=== PATIENT | female | born 1960 | race Caucasian/White ===

== ENCOUNTER → 2016-12-14 | Outpatient (CLI) | payer MEDICARE, OTHER ==
[~2016-12-14] MED LIST: ANTIVERT 25MG25 MG PO; ASPIRIN 32325 MG/TAB PO; ASPIRIN E.C. 8181 MG PO; CYMBALTA 60MG60 MG PO; DOXYCYCLINE 10100 MG PO; DULCOLAX S10 MG/SUPP RC; EVOXAC30 MG PO; FISH OIL 1000MG1 CAP PO; FLONASE NASAL S16 GM NS; FLOVENT 220MCG7.9 GM IH; HAIRSKINNAILS PO; HCTZ 25MG TAB25 MG PO; K-TAB20 PO; LEVAQUIN 750MG750 M1 PO; LEVOXYL0.137 MG PO; NEURONTIN800 MG/TAB PO; NITROSTAT0.4 MG/TAB SL; PAMELOR 25MG25 MG PO; PLAVIX 75MG TAB75 MG PO; PRAVACHOL 40MG40 MG PO; PRIL40 PO; PROAIR HFA0.09 MG/AC IH; REFRESH CELLUVI1 SOL OP; ROBAXIN 75750 MG/TAB PO; TENORMIN 5050 MG/TAB PO; ULTRAM 50MG TAB50 MG PO; VALIUM 5MG T5 MG/TAB PO; VASCEPA1 GM PO; VITAMIN B-1000 MCG/T PO; XANAX 0.5MG0.5 MG PO; ZOFRAN 4MG T4 MG/TAB PO; ZYRTEC 10MG10 MG PO
== END ==
LOC: COL.RAD 13:05
DX: M89.9 Disorder of bone, unspecified (principal)
CPT/HCPCS: A9585

== ENCOUNTER 2016-12-26 11:52 | Day surgery (SDC) | payer MEDICARE, OTHER ==
[2016-12-26] VITALS (9 sets, daily range): BP systolic 94–105; BP diastolic 49–71; PULSE 66–75
[~2016-12-26] VITALS: Ht 167.6 cm; Wt 79.3 kg
[2016-12-26 12:39] LABS: HEMOGLOBIN 10.5 g/dl (12.5-16.0); MEAN CELL VOLUME 79 fl (80.0-100.0); MEAN CORPUSCULAR HEMOGLOBIN 25 pg (27.0-31.0); MEAN CORPUSCULAR HGB CONC 32 g/dl (33.0-37.0); MEAN PLATELET VOLUME 8.8 fl (7.4-10.4); PLATELET COUNT 426 K/mm3 (130-400); RED BLOOD COUNT 4.17 M/mm3 (4.10-5.30)
[2016-12-26 12:48] LABS: INR 1.2 (0.8-3.0); PROTHROMBIN TIME 13.3 SECONDS (9.7-12.8)
[2016-12-26 12:55] LABS: CALCIUM 9.1 mg/dL (8.4-10.2); CREATININE, serum 0.71 mg/dL (0.52-1.25); POTASSIUM 3.9 mmol/L (3.4-5.0)
[2016-12-26] MEDS ORDERED: NITROSTAT0.4 MG/TAB SL (13:35)
[2016-12-26] MEDS ORDERED: LEVOXYL0.137 MG PO (13:36)
[2016-12-26] MEDS ORDERED: PRAVACHOL 40MG40 MG PO (13:37)
[2016-12-26] MEDS ORDERED: FLOVENT 220MCG7.9 GM IH (13:38)
[2016-12-26] MEDS ORDERED: ROBAXIN 75750 MG/TAB PO (13:39)
[2016-12-26] MEDS ORDERED: NEURONTIN800 MG/TAB PO (13:40)
[2016-12-26] MEDS ORDERED: PRIL40 PO (13:43)
[2016-12-26] MEDS ORDERED: PLAVIX 75MG TAB75 MG PO (13:44)
[2016-12-26] MEDS ORDERED: PAMELOR 25MG25 MG PO (13:44)
[2016-12-26] MEDS ORDERED: PROAIR HFA0.09 MG/AC IH (13:44)
[2016-12-26] MEDS ORDERED: VASCEPA1 GM PO (13:45)
[2016-12-26] MEDS ORDERED: EVOXAC30 MG PO (13:46)
[2016-12-26] MEDS ORDERED: CYMBALTA 60MG60 MG PO (13:47)
[2016-12-26] MEDS ORDERED: HCTZ 25MG TAB25 MG PO (13:48)
[2016-12-26] MEDS ORDERED: K-TAB20 PO (13:49)
[2016-12-26] MEDS ORDERED: REFRESH CELLUVI1 SOL OP (13:49)
[2016-12-26] MEDS ORDERED: TENORMIN 5050 MG/TAB PO (13:50)
[2016-12-26] MEDS ORDERED: ASPIRIN 32325 MG/TAB PO (13:50)
[2016-12-26] MEDS ORDERED: HAIRSKINNAILS PO (13:51)
[2016-12-26] MEDS ORDERED: VITAMIN B-1000 MCG/T PO (13:51)
[2016-12-26] MEDS ORDERED: ASPIRIN E.C. 8181 MG PO (14:55)
== END 2016-12-26 16:55 | disposition home or self-care (01) ==
LOC: EUO 11:52 → COL.CAR 12:45 → EUO 16:55
PROVIDERS: Internal Medicine Interventional Cardiology
DX: R07.9 Chest pain, unspecified (principal); R94.39 Abnormal result of other cardiovascular function study; I20.9 Angina pectoris, unspecified; I70.213 Atherosclerosis of native arteries of extremities with intermittent claudication, bilateral legs; F17.210 Nicotine dependence, cigarettes, uncomplicated; R06.02 Shortness of breath; Z80.9 Family history of malignant neoplasm, unspecified; Z79.01 Long term (current) use of anticoagulants; I83.93 Asymptomatic varicose veins of bilateral lower extremities; I05.0 Rheumatic mitral stenosis; Z95.820 Peripheral vascular angioplasty status with implants and grafts
CPT/HCPCS: C1760; J2250; J3010

== ENCOUNTER 2017-01-24 07:57 | Emergency (ER) | payer MEDICARE, OTHER ==
[~2017-01-24] VITALS: Ht 165.1 cm; Wt 78.2 kg
[~2017-01-24 07:57] MED LIST changes: -ANTIVERT 25MG25 MG PO; -DOXYCYCLINE 10100 MG PO; -DULCOLAX S10 MG/SUPP RC; -FISH OIL 1000MG1 CAP PO; -FLONASE NASAL S16 GM NS; -LEVAQUIN 750MG750 M1 PO; -ULTRAM 50MG TAB50 MG PO; -VALIUM 5MG T5 MG/TAB PO; -XANAX 0.5MG0.5 MG PO; -ZOFRAN 4MG T4 MG/TAB PO; -ZYRTEC 10MG10 MG PO
[2017-01-24 08:05] VITALS: TEMP 97.9
[2017-01-24 08:50] LABS: BASO # 0.1 (0.0-0.2); BASO % 0.7 % (0.0-2.0); EOS # 0.4 (0.0-0.7); EOS % 3.2 % (0-4.0); GRAN % 60.1 % (42.2-75.2); LYMPH # 3.7 (1.2-3.4); LYMPH % 27.7 % (20.0-51.0); MEAN CELL VOLUME 78 fl (80.0-100.0); MEAN CORPUSCULAR HGB CONC 32 g/dl (33.0-37.0); MEAN PLATELET VOLUME 9.1 fl (7.4-10.4); MONO % 7.4 % (1.7-9.3); PLATELET COUNT 372 K/mm3 (130-400); RED BLOOD COUNT 4.43 M/mm3 (4.10-5.30); REDCELL DISTRIBUTION WIDTH-CV 17.4 % (11.5-14.5); WHITE BLOOD COUNT 13.3 K/mm3 (4.8-10.8)
[2017-01-24 08:53] LABS: HEMATOCRIT 34.6 % (37.0-47.0); HEMOGLOBIN 10.9 g/dl (12.5-16.0); MEAN CORPUSCULAR HEMOGLOBIN 25 pg (27.0-31.0)
[2017-01-24 09:01] LABS: ADJUSTED CALCIUM 9.3 mg/dL (8.4-10.2); ALANINE AMINOTRANSFERASE 23 U/L (9-52); ALKALINE PHOSPHATASE 125 U/L (50-136); ANION GAP 12 mmol/L (7-16); BILIRUBIN,TOTAL 0.9 mg/dL (0.0-1.0); BLOOD UREA NITROGEN 5 mg/dL (7-17); CALCIUM 9.3 mg/dL (8.4-10.2); CARBON DIOXIDE 23 mmol/L (22-30); CHLORIDE 104 mmol/L (98-107); CREATININE, serum 0.62 mg/dL (0.52-1.25); GLUCOSE 104 mg/dL (74-106); MAGNESIUM 1.9 mg/dL (1.6-2.3); PHOSPHOROUS 3.9 mg/dL (2.5-4.5); POTASSIUM 4.2 mmol/L (3.4-5.0); SODIUM 139 mmol/L (137-145); TOTAL PROTEIN 7.1 gm/dL (6.4-8.2)
[2017-01-24 09:13] LABS: TROPONIN-I < 0.012 ng/mL (0.000-0.034)
[2017-01-24 09:26] LABS: PH 6 (5-8); SQUAMOUS EPITHELIAL 0-2 /hpf; URINE APPEARANCE Clear; URINE BACTERIA None Seen /hpf; URINE BILIRUBIN Negative (NEGATIVE); URINE BLOOD Negative (NEGATIVE); URINE COLOR Straw; URINE GLUCOSE Negative (NEGATIVE); URINE KETONE Negative (NEGATIVE); URINE RBC 0-2 /hpf; URINE UROBILINOGEN Negative (NEGATIVE)
[2017-01-24 09:29] LABS: URINE WBC None Seen /hpf
[2017-01-24 09:31] LABS: THYROID STIMULATING HORMONE 0.514 uIU/mL (0.465-4.680)
[2017-01-24] MEDS ORDERED: VALIUM 5MG T5 MG/TAB PO (13:31)
[2017-01-24] MEDS ORDERED: ANTIVERT 25MG25 MG PO (13:31)
[2017-01-24] MEDS ORDERED: ZOFRAN 4MG T4 MG/TAB PO (13:31)
[2017-01-24] MEDS ORDERED: DOXYCYCLINE 10100 MG PO (13:31)
[2017-01-24 14:36] VITALS: BP 113/72; PULSE 80
[2017-01-25] MEDS ORDERED: FISH OIL 1000MG1 CAP PO (10:47)
[2017-01-25] MEDS ORDERED: ULTRAM 50MG TAB50 MG PO (10:49)
== END 2017-01-24 14:35 | disposition home or self-care (01) ==
LOC: COL.ER 07:57
PROVIDERS: Emergency Medicine
DX: R42 Dizziness and giddiness (principal); I10 Essential (primary) hypertension; R11.2 Nausea with vomiting, unspecified; F17.210 Nicotine dependence, cigarettes, uncomplicated; Z79.02 Long term (current) use of antithrombotics/antiplatelets; Z20.7 Contact with and (suspected) exposure to pediculosis, acariasis and other infestations
CPT/HCPCS: A9585; J1170; J2550; J3360; J7030

== ENCOUNTER 2017-01-25 08:42 | Inpatient (IN) | payer MEDICARE, OTHER ==
[~2017-01-25] VITALS: Ht 165.1 cm; Wt 81.6 kg
[~2017-01-25 08:42] MED LIST changes: +ANTIVERT 25MG25 MG PO; +DOXYCYCLINE 10100 MG PO; +VALIUM 5MG T5 MG/TAB PO; +ZOFRAN 4MG T4 MG/TAB PO
[2017-01-25 09:19] LABS: BASO # 0.1 (0.0-0.2); BASO % 0.6 % (0.0-2.0); EOS # 0.4 (0.0-0.7); EOS % 3.4 % (0-4.0); GRAN % 57.3 % (42.2-75.2); LYMPH # 3.7 (1.2-3.4); LYMPH % 30.2 % (20.0-51.0); MEAN CELL VOLUME 80 fl (80.0-100.0); MEAN CORPUSCULAR HGB CONC 31 g/dl (33.0-37.0); MEAN PLATELET VOLUME 9.3 fl (7.4-10.4); MONO # 0.9 (0.1-0.6); MONO % 7.6 % (1.7-9.3); PLATELET COUNT 350 K/mm3 (130-400); REDCELL DISTRIBUTION WIDTH-CV 17.6 % (11.5-14.5); WHITE BLOOD COUNT 12.2 K/mm3 (4.8-10.8)
[2017-01-25 09:28] LABS: HEMATOCRIT 33.7 % (37.0-47.0); HEMOGLOBIN 10.5 g/dl (12.5-16.0); MEAN CORPUSCULAR HEMOGLOBIN 25 pg (27.0-31.0)
[2017-01-25 09:30] LABS: ADJUSTED CALCIUM 9.5 mg/dL (8.4-10.2); ALANINE AMINOTRANSFERASE 17 U/L (9-52); ALBUMIN 3.8 gm/dL (3.5-5.0); ALKALINE PHOSPHATASE 97 U/L (50-136); ANION GAP 10 mmol/L (7-16); BILIRUBIN,TOTAL 0.8 mg/dL (0.0-1.0); BLOOD UREA NITROGEN 5 mg/dL (7-17); CALCIUM 9.3 mg/dL (8.4-10.2); CARBON DIOXIDE 23 mmol/L (22-30); CHLORIDE 107 mmol/L (98-107); CREATININE, serum 0.62 mg/dL (0.52-1.25); GLUCOSE 135 mg/dL (74-106); LIPASE 13 U/L (23-300); POTASSIUM 3.9 mmol/L (3.4-5.0); SODIUM 141 mmol/L (137-145); TOTAL PROTEIN 7.1 gm/dL (6.4-8.2)
[2017-01-25 09:42] LABS: B-TYPE NATRIURETIC PEPTIDE 419 pg/mL (0-125); TROPONIN-I < 0.012 ng/mL (0.000-0.034)
[2017-01-25] MEDS ORDERED: FISH OIL 1000MG1 CAP PO (10:47)
[2017-01-25] MEDS ORDERED: ULTRAM 50MG TAB50 MG PO (10:49)
[2017-01-25 14:19] VITALS: BP 135/66; PULSE 89; TEMP 98.1
[2017-01-25 15:45] VITALS: BP 141/78; PULSE 99; TEMP 97.8
[2017-01-25 21:14] VITALS: BP 138/66; PULSE 113; TEMP 98.4
[2017-01-26] VITALS (7 sets, daily range): BP systolic 105–132; BP diastolic 61–73; PULSE 91–107; TEMP 97–98.6
[2017-01-26 06:38] LABS: MEAN CELL VOLUME 80 fl (80.0-100.0); MEAN CORPUSCULAR HGB CONC 31 g/dl (33.0-37.0); MEAN PLATELET VOLUME 9.3 fl (7.4-10.4); PLATELET COUNT 371 K/mm3 (130-400); RED BLOOD COUNT 3.99 M/mm3 (4.10-5.30); REDCELL DISTRIBUTION WIDTH-CV 17.4 % (11.5-14.5)
[2017-01-26 06:48] LABS: ADD PATHOLOGY DIFF REVIEW NO; HEMATOCRIT 31.8 % (37.0-47.0); MEAN CORPUSCULAR HEMOGLOBIN 25 pg (27.0-31.0); WHITE BLOOD COUNT 22.1 K/mm3 (4.8-10.8)
[2017-01-26 06:52] LABS: CALCIUM 9.2 mg/dL (8.4-10.2); CREATININE, serum 0.75 mg/dL (0.52-1.25); POTASSIUM 3.6 mmol/L (3.4-5.0)
[2017-01-26 07:11] LABS: MAGNESIUM 1.6 mg/dL (1.6-2.3)
[2017-01-26 08:37] LABS: ANISOCYTOSIS 1+; BAND 10 % (0-10); HYPOCHROMIA 1+; MICROCYTOSIS 1+; NEUTROPHILS 74 % (42.0-75.2); PLATELET ESTIMATE NORMAL (NORMAL); TOTAL CELLS COUNTED 100
[2017-01-26 11:47] LABS: ARTERIAL BLD GAS O2 SATURATION 92.3 % (92-100); ARTERIAL BLD GAS TCO2 CT 29.3; ARTERIAL BLOOD GAS BASE EXCESS 3.8 (-2-2); ARTERIAL BLOOD GAS PHT 7.45 C (7.35-7.45); ARTERIAL BLOOD GAS PO2 63.9 mmHg (80-100); ARTERIAL BLOOD GAS PO2T 63.9 (80-100); ARTERIAL BLOOD GAS pH 7.45 (7.35-7.45); OXYHEMOGLOBIN 91.7 %
[2017-01-26 11:48] LABS: ALLEN TEST YES; ALLENS TEST RESULT PASS; ATS? YES
[2017-01-27 03:35] VITALS: BP 119/52; PULSE 94; TEMP 98.2
[2017-01-27 07:40] LABS: MEAN CELL VOLUME 80 fl (80.0-100.0); MEAN CORPUSCULAR HEMOGLOBIN 25 pg (27.0-31.0); MEAN CORPUSCULAR HGB CONC 31 g/dl (33.0-37.0); MEAN PLATELET VOLUME 9.8 fl (7.4-10.4); PLATELET COUNT 397 K/mm3 (130-400); RED BLOOD COUNT 4.61 M/mm3 (4.10-5.30)
[2017-01-27 07:51] LABS: HEMOGLOBIN 11.4 g/dl (12.5-16.0); WHITE BLOOD COUNT 20.5 K/mm3 (4.8-10.8)
[2017-01-27 07:52] LABS: ADD PATHOLOGY DIFF REVIEW NO
[2017-01-27 07:54] LABS: CREATININE, serum 0.74 mg/dL (0.52-1.25); POTASSIUM 4.2 mmol/L (3.4-5.0)
[2017-01-27 07:55] LABS: CALCIUM 10.1 mg/dL (8.4-10.2); CREATININE, serum 0.73 mg/dL (0.52-1.25); MAGNESIUM 1.9 mg/dL (1.6-2.3); POTASSIUM 4.2 mmol/L (3.4-5.0)
[2017-01-27 08:20] VITALS: BP 159/73; PULSE 129; TEMP 97.8
[2017-01-27 08:45] LABS: ANISOCYTOSIS 3+; BAND 9 % (0-10); MYELOCYTE 1 % (0-0); NEUTROPHILS 71 % (42.0-75.2); PLATELET ESTIMATE INCREASED (NORMAL); TOTAL CELLS COUNTED 100
[2017-01-27 08:46] LABS: HYPOCHROMIA 2+; OVALOCYTES 1+
[2017-01-27 11:39] VITALS: BP 107/39; PULSE 108; TEMP 98.4
[2017-01-27 16:19] VITALS: BP 117/67; PULSE 105; TEMP 98.4
[2017-01-27 19:39] VITALS: BP 112/80; PULSE 90; TEMP 98
[2017-01-27 23:28] VITALS: BP 115/73; PULSE 90; TEMP 98.2
[2017-01-28 03:30] VITALS: BP 154/81; PULSE 99; TEMP 97.6
[2017-01-28 07:19] VITALS: BP 136/79; PULSE 98; TEMP 97.5
[2017-01-28 08:34] LABS: CALCIUM 9.3 mg/dL (8.4-10.2); CREATININE, serum 0.76 mg/dL (0.52-1.25); POTASSIUM 3.8 mmol/L (3.4-5.0)
[2017-01-28] MEDS ORDERED: ZYRTEC 10MG10 MG PO (11:01)
[2017-01-28] MEDS ORDERED: LEVAQUIN 750MG750 M1 PO (11:01)
[2017-01-28] MEDS ORDERED: FLONASE NASAL S16 GM NS (11:03)
[2017-01-28] MEDS ORDERED: DULCOLAX S10 MG/SUPP RC (11:04)
[2017-01-28] MEDS ORDERED: XANAX 0.5MG0.5 MG PO (11:05)
== END 2017-01-28 12:41 | disposition home or self-care (01) | DRG 189 ==
LOC: COL.ER 08:42 → MEDICAL 12:21
PROVIDERS: Emergency Medicine; Internal Medicine; Nurse Practitioner Family
DX: J96.01 Acute respiratory failure with hypoxia (principal); K50.90 Crohn's disease, unspecified, without complications; J90 Pleural effusion, not elsewhere classified; J44.1 Chronic obstructive pulmonary disease with (acute) exacerbation; I10 Essential (primary) hypertension; E11.9 Type 2 diabetes mellitus without complications; E87.6 Hypokalemia; M79.7 Fibromyalgia; I25.10 Atherosclerotic heart disease of native coronary artery without angina pectoris; F17.210 Nicotine dependence, cigarettes, uncomplicated; H81.13 Benign paroxysmal vertigo, bilateral; F41.9 Anxiety disorder, unspecified; I73.9 Peripheral vascular disease, unspecified; Z95.820 Peripheral vascular angioplasty status with implants and grafts
CPT/HCPCS: 99223-AI; 99232-AI; 99239; A9284; A9585; J0692; J1170; J1650; J1885; J1940; J1956; J2550; J2930; J3360; J7030; J7050; J7512; Q9967

== ENCOUNTER → 2017-08-21 | Outpatient (CLI) | payer MEDICARE, OTHER ==
[~2017-08-21] MED LIST changes: +DULCOLAX S10 MG/SUPP RC; +FISH OIL 1000MG1 CAP PO; +FLONASE NASAL S16 GM NS; +LEVAQUIN 750MG750 M1 PO; +ULTRAM 50MG TAB50 MG PO; +XANAX 0.5MG0.5 MG PO; +ZYRTEC 10MG10 MG PO
== END ==
LOC: COL.RAD 09:34
DX: I70.8 Atherosclerosis of other arteries (principal); I70.0 Atherosclerosis of aorta; N94.89 Other specified conditions associated with female genital organs and menstrual cycle; Z96.89 Presence of other specified functional implants
CPT/HCPCS: Q9967

== ENCOUNTER → 2017-08-23 | Outpatient (CLI) | payer MEDICARE, OTHER | LOC: MC.RAD 07-27 13:40 | DX: Z12.31 Encounter for screening mammogram for malignant neoplasm of breast (principal) ==

== ENCOUNTER 2017-12-21 06:50 | Outpatient (CLI) | payer MEDICARE, OTHER ==
[~2017-12-21] VITALS: Ht 165.2 cm; Wt 72.7 kg
[2017-12-21 07:25] LABS: HEMOGLOBIN 10.5 g/dl (12.5-16.0); MEAN CELL VOLUME 69 fl (80.0-100.0); MEAN CORPUSCULAR HEMOGLOBIN 22 pg (27.0-31.0); MEAN CORPUSCULAR HGB CONC 32 g/dl (33.0-37.0); MEAN PLATELET VOLUME 9.2 fl (7.4-10.4); PLATELET COUNT 418 K/mm3 (130-400); RED BLOOD COUNT 4.78 M/mm3 (4.10-5.30); REDCELL DISTRIBUTION WIDTH-CV 17.7 % (11.5-14.5)
[2017-12-21 07:27] LABS: CALCIUM 9.4 mg/dL (8.4-10.2); CREATININE, serum 0.81 mg/dL (0.52-1.25); POTASSIUM 3.5 mmol/L (3.4-5.0)
[2017-12-21 07:29] LABS: PROTHROMBIN TIME 11.5 SECONDS (9.7-12.8)
[2017-12-21] MEDS ORDERED: TENORMIN 5050 MG/TAB PO (07:44)
[2017-12-21] MEDS ORDERED: PLAVIX 75MG TAB75 MG PO (07:45)
[2017-12-21] MEDS ORDERED: CELEXA10 MG PO (07:45)
[2017-12-21] MEDS ORDERED: FLOVENT 220MCG7.9 GM IH (07:46)
[2017-12-21] MEDS ORDERED: NEURONTIN800 MG/TAB PO (07:46)
[2017-12-21] MEDS ORDERED: HCTZ 25MG TAB25 MG PO (07:47)
[2017-12-21] MEDS ORDERED: SYNTHROID0.137 MG PO (07:47)
[2017-12-21] MEDS ORDERED: LIDODERM 5% PATC1 EA TP (07:48)
[2017-12-21] MEDS ORDERED: PRIL40 PO (07:49)
[2017-12-21] MEDS ORDERED: NITROSTAT0.4 MG/TAB SL (07:49)
[2017-12-21] MEDS ORDERED: ZOFRAN 4MG T4 MG/TAB PO (07:50)
[2017-12-21] MEDS ORDERED: PROAIR HFA0.09 MG/AC IH (07:51)
[2017-12-21] MEDS ORDERED: PRAVACHOL 40MG40 MG PO (07:51)
[2017-12-21] MEDS ORDERED: REFRESH TEARS 330 ML OP (07:52)
[2017-12-21] MEDS ORDERED: ULTRAM 50MG TAB50 MG PO (07:52)
[2017-12-21 08:09] VITALS: BP 121/52; PULSE 64; TEMP 98
[2017-12-21 08:46] VITALS: BP 111/63; PULSE 69
[2017-12-21 09:00] VITALS: BP 116/63; PULSE 69
[2017-12-21 09:15] VITALS: BP 114/74; PULSE 66
[2017-12-21 09:30] VITALS: BP 127/72; PULSE 93
[2017-12-21 10:15] VITALS: BP 126/69; PULSE 62
== END 2017-12-21 11:58 | disposition home or self-care (01) ==
LOC: COL.RAD 06:50
PROVIDERS: Internal Medicine Interventional Cardiology
DX: I08.0 Rheumatic disorders of both mitral and aortic valves (principal); I27.20 Pulmonary hypertension, unspecified; I70.213 Atherosclerosis of native arteries of extremities with intermittent claudication, bilateral legs; G72.9 Myopathy, unspecified
CPT/HCPCS: G9654; J2250; J2704; J7030

== ENCOUNTER 2018-01-10 13:26 | Emergency (ER) | payer MEDICARE, OTHER ==
[~2018-01-10] VITALS: Ht 165.1 cm; Wt 68.2 kg
[~2018-01-10 13:26] MED LIST changes: +CELEXA10 MG PO; +LIDODERM 5% PATC1 EA TP; +REFRESH TEARS 330 ML OP; +SYNTHROID0.137 MG PO
[2018-01-10 13:36] VITALS: TEMP 96.7
[2018-01-10] MEDS ORDERED: AMBIEN CR6.25 MG PO (13:49)
[2018-01-10 13:52] LABS: MEAN CELL VOLUME 69 fl (80.0-100.0); MEAN CORPUSCULAR HGB CONC 32 g/dl (33.0-37.0); MEAN PLATELET VOLUME 9.3 fl (7.4-10.4); PLATELET COUNT 513 K/mm3 (130-400); RED BLOOD COUNT 4.32 M/mm3 (4.10-5.30); REDCELL DISTRIBUTION WIDTH-CV 18.1 % (11.5-14.5)
[2018-01-10 13:55] LABS: HEMATOCRIT 29.8 % (37.0-47.0); HEMOGLOBIN 9.6 g/dl (12.5-16.0); MEAN CORPUSCULAR HEMOGLOBIN 22 pg (27.0-31.0)
[2018-01-10 13:58] LABS: INR 1.1 (0.8-3.0)
[2018-01-10 14:00] LABS: ALANINE AMINOTRANSFERASE 23 U/L (9-52); ALBUMIN 4.2 gm/dL (3.5-5.0); ALKALINE PHOSPHATASE 136 U/L (50-136); ANION GAP 13 mmol/L (7-16); AST,SGOT 24 U/L (15-37); BILIRUBIN,TOTAL 1.2 mg/dL (0.0-1.0); BLOOD UREA NITROGEN 8 mg/dL (7-17); CALCIUM 9.6 mg/dL (8.4-10.2); CARBON DIOXIDE 25 mmol/L (22-30); CHLORIDE 96 mmol/L (98-107); CREATININE, serum 0.79 mg/dL (0.52-1.25); GLUCOSE 98 mg/dL (74-106); POTASSIUM 3.5 mmol/L (3.4-5.0); SODIUM 134 mmol/L (137-145)
[2018-01-10 14:11] LABS: TROPONIN-I < 0.012 ng/mL (0.000-0.034)
[2018-01-10 14:20] LABS: ANISOCYTOSIS 2+; BAND 6 % (0-10); EOSINOPHIL 1 % (0-4); LYMPHOCYTE 46 % (20.0-51.0); MICROCYTOSIS 1+; NEUTROPHILS 47 % (42.0-75.2); NUCLEATED RED BLOOD CELL 1 (0-6); OVALOCYTES 2+; PLATELET ESTIMATE INCREASED (NORMAL)
[2018-01-10 15:49] VITALS: BP 125/68; PULSE 75
== END 2018-01-10 15:50 | disposition home or self-care (01) ==
LOC: COL.ER 13:26
PROVIDERS: Emergency Medicine
DX: D64.9 Anemia, unspecified (principal); R00.0 Tachycardia, unspecified; Z79.82 Long term (current) use of aspirin; Z79.02 Long term (current) use of antithrombotics/antiplatelets
CPT/HCPCS: J7030

== ENCOUNTER → 2018-01-11 | Outpatient (CLI) | payer MEDICARE, OTHER ==
[~2018-01-11] MED LIST changes: +AMBIEN CR6.25 MG PO
== END ==
LOC: COL.PUL 10:48
DX: R06.02 Shortness of breath (principal); Z87.891 Personal history of nicotine dependence
CPT/HCPCS: J7674

== ENCOUNTER 2018-04-18 09:15 | Day surgery (SDC) | payer MEDICARE, OTHER ==
[~2018-04-18] VITALS: Ht 165.1 cm; Wt 71.8 kg
[2018-04-18] VITALS (15 sets, daily range): BP systolic 92–139; BP diastolic 55–85; PULSE 60–74; TEMP 98.1
[2018-04-18 10:12] LABS: HEMOGLOBIN 11.2 g/dl (12.5-16.0); MEAN CELL VOLUME 73 fl (80.0-100.0); MEAN CORPUSCULAR HEMOGLOBIN 22 pg (27.0-31.0); MEAN CORPUSCULAR HGB CONC 30 g/dl (33.0-37.0); MEAN PLATELET VOLUME 9.3 fl (7.4-10.4); PLATELET COUNT 405 K/mm3 (130-400); RED BLOOD COUNT 5.08 M/mm3 (4.10-5.30); REDCELL DISTRIBUTION WIDTH-CV 22.2 % (11.5-14.5)
[2018-04-18 10:17] LABS: PROTHROMBIN TIME 11.6 SECONDS (9.7-12.8)
[2018-04-18 10:24] LABS: CALCIUM 9.1 mg/dL (8.4-10.2); CREATININE, serum 0.75 mg/dL (0.52-1.25); POTASSIUM 3.4 mmol/L (3.4-5.0)
[2018-04-18] MEDS ORDERED: ADVIL PM 38 MG-1 TAB PO (10:29)
[2018-04-18] MEDS ORDERED: KLOR-CON M2020 MEQ PO (10:31)
[2018-04-18] MEDS ORDERED: SINGULAIR 110 MG/TAB PO (10:31)
[2018-04-18] MEDS ORDERED: FERROUS SU325 MG/TAB PO (10:32)
[2018-04-18] MEDS ORDERED: LASIX 40MG TABL40 MG PO (10:33)
[2018-04-18] MEDS ORDERED: VITAMIN B12 781 TAB PO (10:34)
[2018-04-18] MEDS ORDERED: APRESOLINE 25MG25 MG PO (10:34)
[2018-04-18] MEDS ORDERED: 00186-0370-20 IH (10:35)
== END 2018-04-18 20:15 | disposition home or self-care (01) ==
LOC: COL.CAR 09:15
PROVIDERS: Internal Medicine Cardiovascular Disease
DX: I05.2 Rheumatic mitral stenosis with insufficiency (principal); I42.9 Cardiomyopathy, unspecified; I20.9 Angina pectoris, unspecified; I70.213 Atherosclerosis of native arteries of extremities with intermittent claudication, bilateral legs; I11.0 Hypertensive heart disease with heart failure; I50.32 Chronic diastolic (congestive) heart failure; Z79.82 Long term (current) use of aspirin; Z88.8 Allergy status to other drugs, medicaments and biological substances; Z87.891 Personal history of nicotine dependence; Z82.49 Family history of ischemic heart disease and other diseases of the circulatory system
CPT/HCPCS: C1725; C1760; C1887; C1894; J1200; J1644; J2250; J3010; J7040; Q9967

== ENCOUNTER 2018-08-01 09:00 | Outpatient (RCR) | payer MEDICARE, OTHER ==
--- NOTE | 2018-07-19 14:30 | NUR ---
patient in the express unit to receive cares for PICC and intravenous antibiotic administration. patient with dual lumen Bard Solo PICC intact right upper arm. Dressing dated 07/18/18. Chlorhexidine dressing. We'll change PICC dressing next .
[2018-07-19 15:54] VITALS: BP 104/66; PULSE 85; TEMP 97.8
[2018-07-20 08:10] VITALS: BP 90/69; PULSE 94; TEMP 97.5
[2018-07-21 08:47] VITALS: BP 124/66; PULSE 83; TEMP 97.9
[2018-07-22 08:41] VITALS: BP 104/66; PULSE 86; TEMP 96.8
[2018-07-22 08:44] LABS: BASO # 0.1 (0.0-0.2); BASO % 1.1 % (0.0-2.0); EOS # 0.2 (0.0-0.7); EOS % 2.8 % (0-4.0); GRAN # 5.3 (1.4-6.5); GRAN % 63.1 % (42.2-75.2); LYMPH # 1.9 (1.2-3.4); LYMPH % 22.8 % (20.0-51.0); MEAN CELL VOLUME 74 fl (80.0-100.0); MEAN CORPUSCULAR HGB CONC 31 g/dl (33.0-37.0); MEAN PLATELET VOLUME 9.6 fl (7.4-10.4); MONO # 0.8 (0.1-0.6); MONO % 9.8 % (1.7-9.3); PLATELET COUNT 418 K/mm3 (130-400); RED BLOOD COUNT 4.27 M/mm3 (4.10-5.30); REDCELL DISTRIBUTION WIDTH-CV 15.4 % (11.5-14.5)
[2018-07-22 08:45] LABS: HEMATOCRIT 31.5 % (37.0-47.0); HEMOGLOBIN 9.8 g/dl (12.5-16.0); MEAN CORPUSCULAR HEMOGLOBIN 23 pg (27.0-31.0)
[2018-07-22 08:52] LABS: ALBUMIN 3.8 gm/dL (3.5-5.0); BILIRUBIN,TOTAL 0.4 mg/dL (0.0-1.0); CALCIUM 9.7 mg/dL (8.4-10.2); CREATININE, serum 0.74 mg/dL (0.52-1.25); POTASSIUM 3.7 mmol/L (3.4-5.0)
[2018-07-23 08:20] VITALS: BP 124/69; PULSE 94; TEMP 97.6
[2018-07-23 08:24] LABS: INR 4.3 (0.8-3.0)
[2018-07-23 08:29] LABS: PROTHROMBIN TIME 48.5 SECONDS (9.7-12.8)
[2018-07-24 09:09] VITALS: BP 112/63; PULSE 82; TEMP 97.8
--- NOTE | 2018-07-25 09:00 | NUR ---
PICC intact right upper arm with sterile dressing change done with insertion site cleansed with chloraprep x 1, skin prep, stat lock, and tegaderm applied. no signs or symptoms of IV complications noted. no concerns voiced. to continue with cares in [place].
[2018-07-25 09:01] VITALS: BP 143/75; PULSE 84; TEMP 97.3
[2018-07-26 09:08] VITALS: BP 104/60; PULSE 77; TEMP 97.5
[2018-07-27 08:00] VITALS: BP 127/69; PULSE 61; TEMP 97.5
[2018-07-28 08:00] VITALS: BP 126/73; PULSE 85; TEMP 97.7
--- NOTE | 2018-07-29 09:00 | NUR ---
PICC intact right upper arm. Small amount of dried fluid drainage under dressing. With sterile technique right upper arm PICC dressing change done with insertion site cleansed with ChloraPrep 1, skin prep, StatLock, and Tegaderm applied. No further drainage noted. No signs or symptoms of IV complications noted. No other concerns voiced. Wrapped with Toy to protect catheter. Patient to continue with cares in the express unit.
[2018-07-29 09:17] VITALS: BP 96/65; PULSE 84; TEMP 97.5
[2018-07-29 09:21] LABS: BASO # 0.1 (0.0-0.2); EOS # 0.3 (0.0-0.7); EOS % 3.7 % (0-4.0); GRAN # 3.7 (1.4-6.5); GRAN % 45.8 % (42.2-75.2); LYMPH # 2.9 (1.2-3.4); LYMPH % 36.5 % (20.0-51.0); MEAN CELL VOLUME 73 fl (80.0-100.0); MEAN CORPUSCULAR HEMOGLOBIN 22 pg (27.0-31.0); MEAN CORPUSCULAR HGB CONC 30 g/dl (33.0-37.0); MEAN PLATELET VOLUME 9.5 fl (7.4-10.4); MONO % 12.8 % (1.7-9.3); PLATELET COUNT 394 K/mm3 (130-400); RED BLOOD COUNT 4.52 M/mm3 (4.10-5.30); REDCELL DISTRIBUTION WIDTH-CV 15.1 % (11.5-14.5)
[2018-07-29 09:30] LABS: HEMATOCRIT 32.9 % (37.0-47.0)
[2018-07-29 09:39] LABS: ALANINE AMINOTRANSFERASE 22 U/L (9-52); ALBUMIN 3.9 gm/dL (3.5-5.0); ALKALINE PHOSPHATASE 103 U/L (50-136); ANION GAP 7 mmol/L (7-16); AST,SGOT 21 U/L (15-37); BILIRUBIN,TOTAL 0.5 mg/dL (0.0-1.0); BLOOD UREA NITROGEN 9 mg/dL (7-17); CALCIUM 9.7 mg/dL (8.4-10.2); CARBON DIOXIDE 33 mmol/L (22-30); CHLORIDE 100 mmol/L (98-107); CREATININE, serum 0.78 mg/dL (0.52-1.25); GLUCOSE 89 mg/dL (74-106); POTASSIUM 3.8 mmol/L (3.4-5.0); SODIUM 140 mmol/L (137-145)
[2018-07-29 09:43] LABS: CREATINE KINASE < 20 U/L (30-135)
[2018-07-30 08:39] VITALS: BP 111/60; PULSE 65; TEMP 96.7
[2018-07-31 08:57] VITALS: BP 139/71; PULSE 88; TEMP 96.9
[2018-07-31 09:12] LABS: INR 2.2 (0.8-3.0); PROTHROMBIN TIME 24.7 SECONDS (9.7-12.8)
[~2018-08-01] VITALS: Ht 167.6 cm; Wt 72.1 kg
[2018-08-01 09:00] VITALS: BP 114/74; PULSE 86; TEMP 97.4
[~2018-08-01 09:00] MED LIST changes: +00186-0370-20 IH; +ADVIL PM 38 MG-1 TAB PO; +APRESOLINE 25MG25 MG PO; +COREG 6.256.25 MG/TA PO; +COUMADIN 5MG5 MG/TAB PO; +FERROUS SU325 MG/TAB PO; +KLOR-CON M2020 MEQ PO; +LASIX 40MG TABL40 MG PO; +NORCO 325 MG-51 TAB PO; +SINGULAIR 110 MG/TAB PO; +VITAMIN B12 781 TAB PO; +VITAMIN D31000 I1 PO
--- NOTE | 2018-08-01 09:30 | NUR ---
PICC intact right upper arm. With sterile technique right upper arm PICC dressing change done with insertion site cleansed with ChloraPrep 1, skin prep, StatLock, and Tegaderm applied. Signs or symptoms of IV complications noted. No concerns voiced. Patient to return next Sunday for cares. Has finished course of IV antibiotics. Patient voiced understanding of instructions.
== END 2018-08-07 07:18 | disposition home or self-care (01) ==
LOC: EUO 09:00
PROVIDERS: Family Medicine
DX: I38 Endocarditis, valve unspecified (principal); Z95.2 Presence of prosthetic heart valve; Z98.890 Other specified postprocedural states; Z79.01 Long term (current) use of anticoagulants; Z87.891 Personal history of nicotine dependence
CPT/HCPCS: J0696; J0878

== ENCOUNTER 2018-08-13 10:00 | Outpatient (RCR) | payer MEDICARE, OTHER ==
[2018-08-07 10:14] VITALS: BP 118/77; PULSE 87; TEMP 98.4
[2018-08-07 10:19] LABS: BASO # 0.1 (0.0-0.2); BASO % 1.1 % (0.0-2.0); EOS # 0.3 (0.0-0.7); EOS % 3.2 % (0-4.0); GRAN # 4.6 (1.4-6.5); GRAN % 53.1 % (42.2-75.2); HEMOGLOBIN 10.5 g/dl (12.5-16.0); LYMPH % 34.5 % (20.0-51.0); MEAN CELL VOLUME 73 fl (80.0-100.0); MEAN CORPUSCULAR HEMOGLOBIN 23 pg (27.0-31.0); MEAN CORPUSCULAR HGB CONC 31 g/dl (33.0-37.0); MEAN PLATELET VOLUME 9.5 fl (7.4-10.4); MONO # 0.7 (0.1-0.6); MONO % 7.5 % (1.7-9.3); PLATELET COUNT 336 K/mm3 (130-400); RED BLOOD COUNT 4.64 M/mm3 (4.10-5.30); REDCELL DISTRIBUTION WIDTH-CV 15.3 % (11.5-14.5)
[2018-08-07 10:29] LABS: ALANINE AMINOTRANSFERASE 16 U/L (9-52); ALBUMIN 3.9 gm/dL (3.5-5.0); ALKALINE PHOSPHATASE 104 U/L (50-136); ANION GAP 5 mmol/L (7-16); AST,SGOT 22 U/L (15-37); BILIRUBIN,TOTAL 0.5 mg/dL (0.0-1.0); BLOOD UREA NITROGEN 7 mg/dL (7-17); CALCIUM 9.4 mg/dL (8.4-10.2); CARBON DIOXIDE 29 mmol/L (22-30); CHLORIDE 103 mmol/L (98-107); CREATININE, serum 0.76 mg/dL (0.52-1.25); GLUCOSE 144 mg/dL (74-106); POTASSIUM 3.9 mmol/L (3.4-5.0); SODIUM 137 mmol/L (137-145); TOTAL PROTEIN 6.9 gm/dL (6.4-8.2)
[2018-08-07 10:30] LABS: CREATINE KINASE < 20 U/L (30-135)
[2018-08-07 10:31] LABS: HEMATOCRIT 33.8 % (37.0-47.0)
--- NOTE | 2018-08-07 11:00 | NUR ---
PICC intact right upper arm. Patient here in the express unit for cares. With sterile technique right upper arm PICC dressing change done with insertion site cleansed with ChloraPrep 1, skin prep, StatLock, and Tegaderm applied. Signs or symptoms of IV complications noted. No concerns voiced. Patient to return next week for cares. Voiced understanding of instructions.
[~2018-08-13] VITALS: Ht 167.6 cm; Wt 72.0 kg
--- NOTE | 2018-08-13 09:52 | NUR ---
Per pt report she has had picc line removed elsewhere.Per pt report she still needs lab drawn.
--- NOTE | 2018-08-13 10:00 | NUR ---
Pt's PICC line was removed. Lab here for peripheral draw. Pt discharged per ambulation.
[2018-08-13 10:16] LABS: BASO # 0.1 (0.0-0.2); BASO % 0.9 % (0.0-2.0); EOS # 0.4 (0.0-0.7); EOS % 4.1 % (0-4.0); GRAN # 5.2 (1.4-6.5); GRAN % 52.4 % (42.2-75.2); HEMATOCRIT 37.6 % (37.0-47.0); HEMOGLOBIN 11.6 g/dl (12.5-16.0); LYMPH # 3.3 (1.2-3.4); LYMPH % 33.7 % (20.0-51.0); MEAN CELL VOLUME 73 fl (80.0-100.0); MEAN CORPUSCULAR HEMOGLOBIN 23 pg (27.0-31.0); MEAN CORPUSCULAR HGB CONC 31 g/dl (33.0-37.0); MEAN PLATELET VOLUME 9.2 fl (7.4-10.4); MONO # 0.8 (0.1-0.6); MONO % 8.5 % (1.7-9.3); PLATELET COUNT 365 K/mm3 (130-400); RED BLOOD COUNT 5.14 M/mm3 (4.10-5.30); REDCELL DISTRIBUTION WIDTH-CV 16.6 % (11.5-14.5)
[2018-08-13 10:22] LABS: INR 2.3 (0.8-3.0); PROTHROMBIN TIME 26.2 SECONDS (9.7-12.8)
[2018-08-13 11:02] LABS: ALBUMIN 4.2 gm/dL (3.5-5.0); BILIRUBIN,TOTAL 0.5 mg/dL (0.0-1.0); CALCIUM 9.9 mg/dL (8.4-10.2); CREATININE, serum 0.88 mg/dL (0.52-1.25); POTASSIUM 3.8 mmol/L (3.4-5.0); TOTAL PROTEIN 7.5 gm/dL (6.4-8.2)
== END 2018-08-13 11:31 | disposition home or self-care (01) ==
LOC: EUO 10:00
PROVIDERS: Family Medicine
DX: Z01.812 Encounter for preprocedural laboratory examination (principal); I38 Endocarditis, valve unspecified; I48.0 Paroxysmal atrial fibrillation; E55.9 Vitamin D deficiency, unspecified; Z95.2 Presence of prosthetic heart valve; Z45.2 Encounter for adjustment and management of vascular access device; Z95.9 Presence of cardiac and vascular implant and graft, unspecified; Z79.01 Long term (current) use of anticoagulants

== ENCOUNTER → 2018-09-12 | Outpatient (CLI) | payer MEDICARE, OTHER ==
[2018-09-12 12:04] LABS: BASO # 0.1 (0.0-0.2); BASO % 0.9 % (0.0-2.0); EOS % 9.5 % (0-4.0); GRAN # 4.5 (1.4-6.5); GRAN % 42.6 % (42.2-75.2); LYMPH % 38.6 % (20.0-51.0); MEAN CELL VOLUME 79 fl (80.0-100.0); MEAN CORPUSCULAR HGB CONC 31 g/dl (33.0-37.0); MEAN PLATELET VOLUME 10.4 fl (7.4-10.4); MONO # 0.8 (0.1-0.6); MONO % 7.9 % (1.7-9.3); PLATELET COUNT 403 K/mm3 (130-400); REDCELL DISTRIBUTION WIDTH-CV 18.5 % (11.5-14.5)
[2018-09-12 12:06] LABS: HEMATOCRIT 30.6 % (37.0-47.0); HEMOGLOBIN 9.6 g/dl (12.5-16.0); MEAN CORPUSCULAR HEMOGLOBIN 25 pg (27.0-31.0)
[2018-09-12 12:12] LABS: ALBUMIN 3.1 gm/dL (3.5-5.0); BILIRUBIN,TOTAL 0.2 mg/dL (0.0-1.0); C-REACTIVE PROTEIN 1.3 mg/dL (0.0-0.9); CALCIUM 8.5 mg/dL (8.4-10.2); CREATININE, serum 0.5 mg/dL (0.52-1.25); POTASSIUM 4.1 mmol/L (3.4-5.0); TOTAL PROTEIN 6.1 gm/dL (6.4-8.2)
== END ==
LOC: ZCOL.LAB 11:45
PROVIDERS: Family Medicine
DX: T82.6XXD Infection and inflammatory reaction due to cardiac valve prosthesis, subsequent encounter (principal)

== ENCOUNTER → 2018-09-25 | Outpatient (REF) ==
[2018-09-25 16:34] LABS: COLLECTION METHOD CLEAN CATCH
[2018-09-25 16:49] LABS: BASO # 0.1 (0.0-0.2); BASO % 0.8 % (0.0-2.0); EOS # 0.7 (0.0-0.7); EOS % 8.4 % (0-4.0); GRAN # 3.4 (1.4-6.5); GRAN % 42.8 % (42.2-75.2); HEMATOCRIT 34.9 % (37.0-47.0); HEMOGLOBIN 11.4 g/dl (12.5-16.0); LYMPH # 3.1 (1.2-3.4); LYMPH % 38.1 % (20.0-51.0); MEAN CELL VOLUME 78 fl (80.0-100.0); MEAN CORPUSCULAR HEMOGLOBIN 25 pg (27.0-31.0); MEAN CORPUSCULAR HGB CONC 33 g/dl (33.0-37.0); MEAN PLATELET VOLUME 9.9 fl (7.4-10.4); MONO # 0.8 (0.1-0.6); MONO % 9.5 % (1.7-9.3); PLATELET COUNT 342 K/mm3 (130-400); RED BLOOD COUNT 4.48 M/mm3 (4.10-5.30); REDCELL DISTRIBUTION WIDTH-CV 17.1 % (11.5-14.5)
[2018-09-25 16:53] LABS: MUCOUS Present /lpf; PH 5 (5-8); URINE APPEARANCE Clear; URINE BACTERIA None Seen /hpf; URINE BILIRUBIN Negative (NEGATIVE); URINE BLOOD Negative (NEGATIVE); URINE COLOR Yellow; URINE GLUCOSE Negative (NEGATIVE); URINE KETONE Trace (NEGATIVE); URINE LEUKOCYTE ESTERASE Negative (NEGATIVE); URINE NITRATE Negative (NEGATIVE); URINE PROTEIN(semi-quant) Negative (NEGATIVE); URINE RBC 0-2 /hpf; URINE UROBILINOGEN Negative (NEGATIVE)
[2018-09-25 16:58] LABS: ALBUMIN 3.7 gm/dL (3.5-5.0); BILIRUBIN,TOTAL 0.3 mg/dL (0.0-1.0); CALCIUM 9.7 mg/dL (8.4-10.2); CREATININE, serum 0.57 mg/dL (0.52-1.25); POTASSIUM 4.1 mmol/L (3.4-5.0); TOTAL PROTEIN 6.8 gm/dL (6.4-8.2)
== END ==
LOC: ZCOL.LAB 16:30
PROVIDERS: Family Medicine
DX: Z01.89 Encounter for other specified special examinations (principal)

== ENCOUNTER → 2018-10-03 | Outpatient (CLI) | payer MEDICARE, OTHER ==
[2018-10-04 23:36] LABS: BASO # 0.1 (0.0-0.2); BASO % 0.6 % (0.0-2.0); EOS # 0.3 (0.0-0.7); EOS % 4.4 % (0-4.0); GRAN # 4.3 (1.4-6.5); GRAN % 54.4 % (42.2-75.2); HEMATOCRIT 37.9 % (37.0-47.0); HEMOGLOBIN 12.3 g/dl (12.5-16.0); LYMPH # 2.4 (1.2-3.4); LYMPH % 31.2 % (20.0-51.0); MEAN CELL VOLUME 77 fl (80.0-100.0); MEAN CORPUSCULAR HEMOGLOBIN 25 pg (27.0-31.0); MEAN CORPUSCULAR HGB CONC 33 g/dl (33.0-37.0); MEAN PLATELET VOLUME 9.9 fl (7.4-10.4); MONO # 0.7 (0.1-0.6); PLATELET COUNT 388 K/mm3 (130-400); RED BLOOD COUNT 4.93 M/mm3 (4.10-5.30); REDCELL DISTRIBUTION WIDTH-CV 16.2 % (11.5-14.5)
[2018-10-04 23:37] LABS: ALBUMIN 3.9 gm/dL (3.5-5.0); BILIRUBIN,TOTAL 0.4 mg/dL (0.0-1.0); CREATININE, serum 0.6 mg/dL (0.52-1.25); POTASSIUM 4.5 mmol/L (3.4-5.0)
== END ==
LOC: ZCOL.LAB 09:00
PROVIDERS: Family Medicine
DX: I39 Endocarditis and heart valve disorders in diseases classified elsewhere (principal)

== ENCOUNTER 2018-10-20 10:55 | Emergency (ER) | payer MEDICARE, OTHER ==
[~2018-10-20] VITALS: Ht 165.1 cm; Wt 75.0 kg
[2018-10-20 10:58] VITALS: TEMP 98.3
[2018-10-20 11:56] LABS: BASO # 0.1 (0.0-0.2); BASO % 0.5 % (0.0-2.0); EOS # 0.2 (0.0-0.7); EOS % 1.5 % (0-4.0); GRAN # 8.6 (1.4-6.5); GRAN % 77.1 % (42.2-75.2); HEMATOCRIT 38.1 % (37.0-47.0); HEMOGLOBIN 12.7 g/dl (12.5-16.0); LYMPH # 1.4 (1.2-3.4); LYMPH % 12.8 % (20.0-51.0); MEAN CELL VOLUME 75 fl (80.0-100.0); MEAN CORPUSCULAR HEMOGLOBIN 25 pg (27.0-31.0); MEAN CORPUSCULAR HGB CONC 33 g/dl (33.0-37.0); MEAN PLATELET VOLUME 9.5 fl (7.4-10.4); MONO # 0.9 (0.1-0.6); MONO % 7.8 % (1.7-9.3); PLATELET COUNT 306 K/mm3 (130-400); RED BLOOD COUNT 5.05 M/mm3 (4.10-5.30); REDCELL DISTRIBUTION WIDTH-CV 15.7 % (11.5-14.5)
[2018-10-20 12:00] LABS: INR 3.3 (0.8-3.0); PROTHROMBIN TIME 37.5 SECONDS (9.7-12.8)
[2018-10-20 12:08] LABS: ALANINE AMINOTRANSFERASE 21 U/L (9-52); ALBUMIN 3.9 gm/dL (3.5-5.0); ALKALINE PHOSPHATASE 119 U/L (50-136); ANION GAP 10 mmol/L (7-16); AST,SGOT 21 U/L (15-37); BILIRUBIN,TOTAL 0.3 mg/dL (0.0-1.0); BLOOD UREA NITROGEN 11 mg/dL (7-17); C-REACTIVE PROTEIN 1.3 mg/dL (0.0-0.9); CALCIUM 9.1 mg/dL (8.4-10.2); CARBON DIOXIDE 26 mmol/L (22-30); CHLORIDE 102 mmol/L (98-107); CREATININE, serum 0.77 mg/dL (0.52-1.25); GLUCOSE 160 mg/dL (74-106); POTASSIUM 3.6 mmol/L (3.4-5.0); SODIUM 137 mmol/L (137-145); TOTAL PROTEIN 7.2 gm/dL (6.4-8.2)
[2018-10-20 12:17] LABS: TROPONIN-I < 0.012 ng/mL (0.000-0.035)
[2018-10-20] MEDS ORDERED: ROXICODONE 55 MG/TAB PO (13:45)
[2018-10-20 14:03] VITALS: BP 106/76; PULSE 82
== END 2018-10-20 14:15 | disposition home or self-care (01) ==
LOC: COL.ER 10:55
PROVIDERS: Physician Assistant
DX: M25.512 Pain in left shoulder (principal); M25.511 Pain in right shoulder; M79.622 Pain in left upper arm; M79.621 Pain in right upper arm; J44.9 Chronic obstructive pulmonary disease, unspecified; E11.9 Type 2 diabetes mellitus without complications; I10 Essential (primary) hypertension; E78.5 Hyperlipidemia, unspecified; F41.9 Anxiety disorder, unspecified; M79.7 Fibromyalgia; F17.290 Nicotine dependence, other tobacco product, uncomplicated; Z79.82 Long term (current) use of aspirin; Z79.51 Long term (current) use of inhaled steroids; Z98.51 Tubal ligation status
CPT/HCPCS: J3010

== ENCOUNTER 2018-10-30 10:50 | Outpatient (CLI) | payer MEDICARE, OTHER ==
[~2018-10-30] VITALS: Ht 165.2 cm; Wt 75.0 kg
[~2018-10-30 10:50] MED LIST changes: +ROXICODONE 55 MG/TAB PO
[2018-10-30 11:47] LABS: HEMATOCRIT 38.1 % (37.0-47.0); HEMOGLOBIN 12.8 g/dl (12.5-16.0); MEAN CELL VOLUME 75 fl (80.0-100.0); MEAN CORPUSCULAR HEMOGLOBIN 25 pg (27.0-31.0); MEAN CORPUSCULAR HGB CONC 34 g/dl (33.0-37.0); MEAN PLATELET VOLUME 9.2 fl (7.4-10.4); PLATELET COUNT 305 K/mm3 (130-400); RED BLOOD COUNT 5.08 M/mm3 (4.10-5.30); REDCELL DISTRIBUTION WIDTH-CV 15.4 % (11.5-14.5)
[2018-10-30 11:50] VITALS: BP 137/90; PULSE 87; TEMP 97.7
[2018-10-30 11:53] LABS: INR 2.7 (0.8-3.0); PROTHROMBIN TIME 30.5 SECONDS (9.7-12.8)
[2018-10-30 11:58] LABS: CALCIUM 9.8 mg/dL (8.4-10.2); CREATININE, serum 0.75 mg/dL (0.52-1.25); POTASSIUM 4.4 mmol/L (3.4-5.0)
[2018-10-30] MEDS ORDERED: COREG 6.256.25 MG/TA PO (12:29)
[2018-10-30] MEDS ORDERED: NORCO 325 MG-51 TAB PO (12:32)
[2018-10-30] MEDS ORDERED: ZOFRAN 4MG T4 MG/TAB PO (12:35)
[2018-10-30] MEDS ORDERED: REFRESH CELLUVI1 SOL OP (12:37)
[2018-10-30] MEDS ORDERED: COUMADIN 5MG5 MG/TAB PO (12:37)
[2018-10-30] MEDS ORDERED: CLARITIN 1010 MG/TAB PO (12:38)
[2018-10-30] MEDS ORDERED: AMBIEN 5MG TABLE5 MG PO (12:38)
[2018-10-30 13:40] VITALS: BP 122/81; PULSE 81
--- NOTE | 2018-10-30 13:40 | NUR ---
Pt wander DANELLE well. Pt resting well in bed, at bedside.
[2018-10-30 13:55] VITALS: BP 125/77; PULSE 85
[2018-10-30 14:10] VITALS: BP 134/83; PULSE 86; TEMP 97.6
[2018-10-30 14:25] VITALS: BP 131/67; PULSE 85
--- NOTE | 2018-10-30 14:25 | NUR ---
Pt has ambulated, voided and wander PO intake s n/v.
--- NOTE | 2018-10-30 14:40 | NUR ---
PIV removed from R AC with catheter intact.
--- NOTE | 2018-10-30 14:45 | NUR ---
Pt discharged per w/c by nurse with .
== END 2018-10-30 14:50 | disposition home or self-care (01) ==
LOC: COL.RAD 10:50
PROVIDERS: Internal Medicine Cardiovascular Disease
DX: B33.21 Viral endocarditis (principal)
CPT/HCPCS: J2704; J7030

== ENCOUNTER 2019-01-07 16:19 | Emergency (ER) | payer MEDICARE, OTHER ==
[~2019-01-07] VITALS: Ht 165.1 cm; Wt 77.3 kg
[~2019-01-07 16:19] MED LIST changes: +AMBIEN 5MG TABLE5 MG PO; +CLARITIN 1010 MG/TAB PO
[2019-01-07 16:25] VITALS: TEMP 96.9
[2019-01-07 16:38] LABS: BASO # 0.1 (0.0-0.2); BASO % 0.6 % (0.0-2.0); EOS # 0.2 (0.0-0.7); EOS % 1.5 % (0-4.0); GRAN # 8.5 (1.4-6.5); GRAN % 70.3 % (42.2-75.2); HEMATOCRIT 38.5 % (37.0-47.0); HEMOGLOBIN 13.1 g/dl (12.5-16.0); LYMPH # 2.3 (1.2-3.4); LYMPH % 18.9 % (20.0-51.0); MEAN CELL VOLUME 78 fl (80.0-100.0); MEAN CORPUSCULAR HEMOGLOBIN 26 pg (27.0-31.0); MEAN CORPUSCULAR HGB CONC 34 g/dl (33.0-37.0); MEAN PLATELET VOLUME 9.7 fl (7.4-10.4); MONO % 8.2 % (1.7-9.3); PLATELET COUNT 338 K/mm3 (130-400); RED BLOOD COUNT 4.96 M/mm3 (4.10-5.30); REDCELL DISTRIBUTION WIDTH-CV 14.9 % (11.5-14.5)
[2019-01-07 16:44] LABS: INR 2.8 (0.8-3.0)
[2019-01-07 16:48] LABS: ALANINE AMINOTRANSFERASE 10 U/L (9-52); ALBUMIN 4.1 gm/dL (3.5-5.0); ALKALINE PHOSPHATASE 135 U/L (50-136); ANION GAP 11 mmol/L (7-16); AST,SGOT 18 U/L (15-37); BILIRUBIN,TOTAL 0.8 mg/dL (0.0-1.0); BLOOD UREA NITROGEN 9 mg/dL (7-17); CALCIUM 9.3 mg/dL (8.4-10.2); CARBON DIOXIDE 25 mmol/L (22-30); CHLORIDE 105 mmol/L (98-107); CREATININE, serum 0.73 (0.52-1.25); GLUCOSE 141 mg/dL (74-106); POTASSIUM 3.9 mmol/L (3.4-5.0); SODIUM 142 mmol/L (137-145); TOTAL PROTEIN 7.4 gm/dL (6.4-8.2)
[2019-01-07 16:58] LABS: PARTIAL THROMBOPLASTIN TIME 54.4 SECONDS (26.0-37.0)
[2019-01-07 16:59] LABS: TROPONIN-I < 0.012 ng/mL (0.000-0.035)
[2019-01-07] MEDS ORDERED: DOXYCYCLINE 10100 MG PO (19:04)
[2019-01-07 19:34] VITALS: BP 136/84; PULSE 74
== END 2019-01-07 19:36 | disposition home or self-care (01) ==
LOC: COL.ER 16:19
PROVIDERS: Family Medicine
DX: J20.9 Acute bronchitis, unspecified (principal); R07.89 Other chest pain; R51 Headache; Z79.82 Long term (current) use of aspirin; Z79.01 Long term (current) use of anticoagulants
CPT/HCPCS: A4216; J0696; J1885

== ENCOUNTER → 2019-04-10 | Outpatient (CLI) | payer MEDICARE, OTHER | LOC: COL.RAD 12:51 | DX: R91.1 Solitary pulmonary nodule (principal) ==

== ENCOUNTER 2019-08-19 00:02 | Emergency (ER) | payer MEDICARE, OTHER ==
[~2019-08-19] VITALS: Ht 167.6 cm; Wt 81.8 kg
[~2019-08-19 00:02] MED LIST changes: +CEPHALEXIN500 M1 PO; +COUMADIN 2MG2 MG/TAB PO; +PROZAC 10MG10 MG PO
[2019-08-19 00:09] VITALS: TEMP 98.6
[2019-08-19 00:39] LABS: COLLECTION METHOD CLEAN CATCH
[2019-08-19 00:55] LABS: PH 6 (5-8); SQUAMOUS EPITHELIAL None Seen /hpf; URINE APPEARANCE Cloudy; URINE BACTERIA None Seen /hpf; URINE BILIRUBIN Negative (NEGATIVE); URINE BLOOD 2+ (NEGATIVE); URINE COLOR Red; URINE GLUCOSE 1+ (NEGATIVE); URINE KETONE Trace (NEGATIVE); URINE LEUKOCYTE ESTERASE Negative (NEGATIVE); URINE NITRATE Negative (NEGATIVE); URINE PROTEIN(semi-quant) 2+ (NEGATIVE); URINE RBC >50 /hpf; URINE UROBILINOGEN Negative (NEGATIVE)
[2019-08-19 00:55] LABS: BASO # 0.1 (0.0-0.2); BASO % 0.6 % (0.0-2.0); EOS # 0.2 (0.0-0.7); EOS % 1.8 % (0-4.0); GRAN # 4.5 (1.4-6.5); GRAN % 53.1 % (42.2-75.2); HEMATOCRIT 38.2 % (37.0-47.0); LYMPH # 2.9 (1.2-3.4); MEAN CELL VOLUME 78 fl (80.0-100.0); MEAN CORPUSCULAR HEMOGLOBIN 26 pg (27.0-31.0); MEAN CORPUSCULAR HGB CONC 34 g/dl (33.0-37.0); MEAN PLATELET VOLUME 9.1 fl (7.4-10.4); MONO # 0.8 (0.1-0.6); MONO % 9.9 % (1.7-9.3); PLATELET COUNT 275 K/mm3 (130-400); RED BLOOD COUNT 4.92 M/mm3 (4.10-5.30); REDCELL DISTRIBUTION WIDTH-CV 14.4 % (11.5-14.5)
[2019-08-19 01:03] LABS: PROTHROMBIN TIME 35.7 SECONDS (9.7-12.8)
[2019-08-19 01:06] LABS: ALBUMIN 3.8 gm/dL (3.5-5.0); BILIRUBIN,TOTAL 0.5 mg/dL (0.0-1.0); CALCIUM 8.8 mg/dL (8.4-10.2); CREATININE, serum 0.76 (0.52-1.25); POTASSIUM 3.8 mmol/L (3.4-5.0); TOTAL PROTEIN 6.8 gm/dL (6.4-8.2)
[2019-08-19 05:11] VITALS: BP 144/74; PULSE 82
== END 2019-08-19 05:11 | disposition home or self-care (01) ==
LOC: COL.ER 00:02
PROVIDERS: Emergency Medicine
DX: R31.9 Hematuria, unspecified (principal); I11.0 Hypertensive heart disease with heart failure; I50.9 Heart failure, unspecified; E11.9 Type 2 diabetes mellitus without complications; J44.9 Chronic obstructive pulmonary disease, unspecified; E78.5 Hyperlipidemia, unspecified; M79.7 Fibromyalgia; Z87.891 Personal history of nicotine dependence; Z79.01 Long term (current) use of anticoagulants; Z79.82 Long term (current) use of aspirin
CPT/HCPCS: Q9967

== ENCOUNTER → 2020-12-16 | Outpatient (CLI) | payer MEDICARE, OTHER | LOC: COL.RAD 08:39 | DX: H05.89 Other disorders of orbit (principal); H05.221 Edema of right orbit; H53.9 Unspecified visual disturbance; H05.20 Unspecified exophthalmos | CPT/HCPCS: Q9967 ==

== ENCOUNTER → 2021-01-19 | Outpatient (CLI) | payer MEDICARE, OTHER | LOC: MC.RAD 11:15 | DX: Z12.31 Encounter for screening mammogram for malignant neoplasm of breast (principal) ==

== ENCOUNTER → 2022-01-13 | Outpatient (CLI) | payer MEDICARE, OTHER | LOC: COL.RAD 12-09 10:30 | DX: M51.26 Other intervertebral disc displacement, lumbar region (principal); M54.12 Radiculopathy, cervical region | CPT/HCPCS: A9575 ==

== ENCOUNTER 2022-01-24 09:04 | Day surgery (SDC) | payer MEDICARE, OTHER ==
[~2022-01-24] VITALS: Ht 165.1 cm; Wt 81.5 kg
[~2022-01-24 09:04] MED LIST changes: +COREG12.5 MG PO; +SYNTHROID0.05 MG/TA PO; -SYNTHROID0.137 MG PO
[2022-01-24] MEDS ORDERED: B-12 500 MCG PO (09:34)
[2022-01-24] MEDS ORDERED: CYMBALTA 20MG20 MG PO (09:35)
[2022-01-24] MEDS ORDERED: CYMBALTA 60MG60 MG PO (09:36)
[2022-01-24] MEDS ORDERED: LUNESTA3 MG PO (09:36)
[2022-01-24] MEDS ORDERED: FLOVENT 220MCG7.9 GM IH (09:37)
[2022-01-24] MEDS ORDERED: LASIX 40MG TABL40 MG PO (09:37)
[2022-01-24] MEDS ORDERED: NORCO 325 MG-7.1 TAB PO (09:38)
[2022-01-24] MEDS ORDERED: LASIX 20MG TABL20 MG PO (09:38)
[2022-01-24] MEDS ORDERED: LYRICA 50MG CAP50 MG PO (09:42)
[2022-01-24] MEDS ORDERED: MASON NATURAL2000 IU PO (09:43)
[2022-01-24] MEDS ORDERED: PROTONIX 40MG T40 MG PO (09:44)
[2022-01-24] MEDS ORDERED: K-TAB20 PO (09:45)
[2022-01-24] MEDS ORDERED: CRESTOR20 MG PO (09:45)
[2022-01-24] MEDS ORDERED: COUMADIN 5MG5 MG/TAB PO (09:46)
[2022-01-24 10:02] VITALS: BP 117/87; PULSE 78; TEMP 97.8
[2022-01-24 11:10] VITALS: BP 117/85; PULSE 72; TEMP 97.2
[2022-01-24 11:25] VITALS: BP 142/52; PULSE 75
[2022-01-24 11:40] VITALS: BP 113/79; PULSE 77
--- NOTE | 2022-01-24 11:50 | NUR ---
1110: Patient arrived back into [facility] following endo procedure. Report received from [facility]. Patient alert and awake. Requesting muffins and coke. Vital signs stable on room air. Call light left within reach. 1115: MD in to see patient 1125: Patient tolerating food and drink. Denies pain or nausea at this time. Vital signs stable on room air. 1135: Patient tolerated food and drink well. Meets discharge criteria went through discharge instructions with patient and family. Questions answered. IV removed without complications. 1145: Patient escorted to patient entrance via wheelchair and left in the care of her , Antoine.
== END 2022-01-24 11:50 | disposition home or self-care (01) ==
LOC: SDCO 09:04
DX: K57.30 Diverticulosis of large intestine without perforation or abscess without bleeding (principal); K64.0 First degree hemorrhoids; K29.30 Chronic superficial gastritis without bleeding; K21.9 Gastro-esophageal reflux disease without esophagitis; Z87.891 Personal history of nicotine dependence
CPT/HCPCS: J2704; J7030

== ENCOUNTER → 2022-02-24 | Outpatient (CLI) | payer MEDICARE, OTHER ==
[~2022-02-24] MED LIST changes: +B-12 500 MCG PO; +CRESTOR20 MG PO; +CYMBALTA 20MG20 MG PO; +LASIX 20MG TABL20 MG PO; +LUNESTA3 MG PO; +LYRICA 50MG CAP50 MG PO; +MASON NATURAL2000 IU PO; +NORCO 325 MG-7.1 TAB PO; +PROTONIX 40MG T40 MG PO
== END ==
LOC: MC.RAD 09:48
DX: N63.25 Unspecified lump in the left breast, overlapping quadrants (principal); Z98.890 Other specified postprocedural states

== ENCOUNTER 2024-04-16 16:29 | Emergency (ER) | payer MEDICARE, OTHER ==
[~2024-04-16] VITALS: Ht 165.1 cm; Wt 83.2 kg
[2024-04-16 16:29] VITALS: TEMP 97.7
[2024-04-16] MEDS ORDERED: Ondansetron 4 MG/2 ML VIAL IV ONE (16:45)
[2024-04-16 16:46] LABS: BASO # 0.1 K/mm3 (0.0-0.2); BASO % 0.5 % (0.0-2.0); EOS # 0.2 K/mm3 (0.0-0.7); EOS % 1.5 % (0.0-4.0); GRAN # 5.8 K/mm3 (1.4-6.5); GRAN % 59.2 % (42.2-75.2); HEMATOCRIT 46.7 % (37.0-47.0); LYMPH # 2.8 K/mm3 (1.2-3.4); LYMPH % 28.6 % (20.0-51.0); MEAN CELL VOLUME 81 fl (80.0-100.0); MEAN CORPUSCULAR HEMOGLOBIN 28 pg (27-31); MEAN CORPUSCULAR HGB CONC 34 g/dl (33.0-37.0); MEAN PLATELET VOLUME 9.4 fl (7.4-10.4); MONO % 9.8 % (1.7-9.3); PLATELET COUNT 261 K/mm3 (130-400); RED BLOOD COUNT 5.79 M/mm3 (4.10-5.30)
[2024-04-16 16:52] LABS: INR 1.2 (0.8-3.0); PROTHROMBIN TIME 12.7 SECONDS (9.7-12.8)
[2024-04-16 16:54] LABS: PARTIAL THROMBOPLASTIN TIME 37.1 SECONDS (26.0-37.0)
[2024-04-16 17:18] LABS: ALBUMIN 4.1 g/dL (3.4-4.8); BILIRUBIN,TOTAL 0.8 mg/dL (0.2-1.2); CALCIUM 9.8 mg/dL (8.4-10.2); CREATININE, serum 0.92 mg/dL (0.57-1.11); POTASSIUM 3.7 mEq/L (3.5-4.5); TOTAL PROTEIN 7.6 g/dl (6.2-8.1)
[2024-04-16 17:24] LABS: TROPONIN-I 0.019 ng/mL (0.00-0.033)
[2024-04-16] MEDS ORDERED: Iohexol 300 - 100 ML VIAL IV ONE (18:13)
[2024-04-16] MEDS ORDERED: NS 64 ML IV SCH (18:14)
[2024-04-16] MEDS ORDERED: AMOXICILLIN 8751 TAB PO (19:32)
[2024-04-16 19:50] VITALS: BP 149/98; PULSE 87
== END 2024-04-16 19:50 | disposition home or self-care (01) ==
LOC: COL.ER 16:29
PROVIDERS: Emergency Medicine
DX: H66.92 Otitis media, unspecified, left ear (principal); H70.12 Chronic mastoiditis, left ear
CPT/HCPCS: J2405; Q9967